=== PATIENT | female | born 1960 | race Caucasian/White ===

== ENCOUNTER 2022-09-30 09:50 | Day surgery (SDC) | payer OTHER, SELFPAY ==
[2022-09-30 10:06] VITALS: BP 120/75; PULSE 73; RESP 16; TEMP 36.2; O2SAT 100; BMI 23.2
[2022-09-30] MEDS: LACTATED RINGERS 1,000 ML 42 ML IV (10:27)
--- NOTE | 2022-09-30 11:15 | PM.HP.1 ---
History of Present Illness History of Present Illness Date Patient Seen: 09/30/22 Time Patient Seen: 11:16 Chief complaint: Screening Colonoscopy Narrative: 61 yo F presents today for her 2nd screening colonoscopy. Her 1st was about 10 years ago avinash Albright and as she recalls there were no polyps. She has no family history of colon cancer and no concerning symptoms. PFSH Social History household members: spouse Smoking Status: Former smoker Meds Home Medications and Allergies Home Medications Medication Instructions Recorded Confirmed Type levothyroxine 88 mcg tablet 88 mcg PO DAILY 09/30/22 09/30/22 History (Synthroid) omeprazole 20 mg capsule,delayed 20 mg PO DAILY 09/30/22 09/30/22 History release pravastatin 40 mg tablet 40 mg PO BEDTIME 09/30/22 09/30/22 History zolpidem 10 mg tablet (Ambien) 10 mg PO BEDTIME PRN Insomnia 09/30/22 09/30/22 History Allergies Allergy/AdvReac Type Severity Reaction Status Date / Time cephalexin [From Keflex] AdvReac Fatigued Verified 09/30/22 10:00 sulfamethoxazole AdvReac Insomnia Verified 09/30/22 10:00 [From Septra] trimethoprim [From Decra] AdvReac Insomnia Verified 09/30/22 10:00 Exam Vital Signs (past 8 hours): - 09/30/22 10:06 Temperature 97.2 F L Pulse Rate 73 Respiratory Rate 16 Blood Pressure 120/75 Pulse Oximetry 100 Oxygen Delivery Method Room Air Oxygen Delivery Method Room Air Const General: cooperative, healthy appearing and comfortable Nutritional Appearance: average body habitus HENMT Head: normal to inspection Eyes General: appearance normal, both eyes and all related structures Resp Effort & Inspection: normal respiratory effort and able to speak in complete sentences GI Palpation: soft and No tender Assessment & Plan Assessment and plan (1) Screening for colon cancer: Status: Acute Assessment & Plan narrative: Presents today for screening colonoscopy I discussed the risks benefits and alternatives including but not limited to perforation of the colon and an incomplete exam she fully understands these risks and would like to proceed.
[2022-09-30 11:57] VITALS: BP 116/63; PULSE 77; RESP 16; TEMP 36.1; O2SAT 98
[2022-09-30 12:03] VITALS: BP 105/62; PULSE 79; RESP 12; O2SAT 100
--- NOTE | 2022-09-30 12:06 | P.OP.COLON_ITS ---
Operative Date/Time/Diagnoses Date of procedure: 09/30/22 Time of procedure: 12:06 Pre-op diagnosis: Screening for colon cancer, 10 year follow-up no family history Post-op diagnosis: same Procedure & Clinicians Study performed: Colonoscopy Same procedure as scheduled: Yes Indications: Screening Surgeon: Ivet Jacome Procedure Notes Procedure in detail: Patient was taken to the endoscopy suite and placed in a left lateral decubitus position. A time-out was performed. With the help of anesthesiologist conscious sedation was induced and monitored throughout the case. A digital rectal exam was performed and there were no masses or strictures. The colonoscope was introduced into the anal canal and advanced through to the cecum. A photograph of the appendiceal orifice was obtained. The bowel prep was good [place] bowel prep score of 2. The scope was then withdrawn for a total of 9 minutes and no polyps were seen. The scope was then retroflexed and a photograph of the internal hemorrhoidal piles was obtained. Overall no major pathology was noted during the exam and no biopsies were taken. Specimen(s): none sent Complications: none Post-procedure Recommendations: Colonoscopy in 10 years
[2022-09-30 12:09] VITALS: BP 117/87; PULSE 69; RESP 15; O2SAT 99
[2022-09-30 12:10] VITALS: BP 127/80; PULSE 70; RESP 15; O2SAT 99
== END 2022-09-30 12:23 | disposition home or self-care (01) ==
PROVIDERS: PCP Internal Medicine; Referring Provider Surgery; Visit Provider Surgery
PROC: 0DJD8ZZ Inspection of Lower Intestinal Tract, Via Natural or Artificial Opening Endoscopic (ICD-10-PCS; CPT 45378; principal; 2022-09-30 11:15)
DX: Z12.11 Encounter for screening for malignant neoplasm of colon (principal)
CPT/HCPCS: 45378